=== PATIENT | female | born 1995 | race Caucasian/White ===

== ENCOUNTER 2020-05-08 11:19 | Emergency (ER) | payer MEDICAID ==
[~2020-05-08] VITALS: Ht 167.6 cm; Wt 68.9 kg
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
[2020-05-08] MEDS ORDERED: KETOROLAC TROMETHAMINE INJ 30 MG/ML VIAL ONE (11:51)
--- NOTE | 2020-05-08 11:59 | NUR ---
URINE SENT TO LAB.
[2020-05-08] MEDS ORDERED: KETOROLAC TROMETHAMINE INJ 30 MG/ML VIAL IM ONE (12:00)
[2020-05-08 13:26] VITALS: BP 130/74
--- NOTE | 2020-05-08 13:26 | NUR ---
Patient discharged to home in stable condition. Written and verbal after care instructions given. Patient verbalizes understanding of instruction.
== END 2020-05-08 13:27 | disposition home or self-care (01) ==
LOC: ER 11:19
DX: S00.03XA Contusion of scalp, initial encounter (principal); S09.8XXA Other specified injuries of head, initial encounter; R51.9 Headache, unspecified; Y04.8XXA Assault by other bodily force, initial encounter; Y93.89 Activity, other specified; Y92.89 Other specified places as the place of occurrence of the external cause; Y99.8 Other external cause status
CPT/HCPCS: 70450; 84703; 96372; 99284; J1885